=== PATIENT | male | born 1970 | race African-American/Black ===

== ENCOUNTER 2018-06-21 16:58 | Emergency (ER) | payer SELFPAY ==
[~2018-06-21] VITALS: Ht 180.3 cm; Wt 84.1 kg
[2018-06-21 19:10] VITALS: BP 143/72
== END 2018-06-21 19:32 | disposition home or self-care (01) ==
LOC: EMS 16:59
DX: J02.9 Acute pharyngitis, unspecified (principal)
CPT/HCPCS: 70490